=== PATIENT | male | born 1950 ===

== ENCOUNTER 2022-03-01 18:06 | Inpatient (IN) ==
[2022-03-01] MEDS ORDERED: D5% in Water 1,000 ML IVC PRN (18:59)
[2022-03-01] MEDS ORDERED: *HR* Dextrose 50 % in Water (Syg) 50 ML SYRINGE IVP PRN (18:59)
[2022-03-01] MEDS ORDERED: Dextrose Gel 15 GM/37.5 ML TUBE PO PRN ×2 (18:59)
[2022-03-01] MEDS ORDERED: Ondansetron ODT 4 MG TAB.RAPDIS SL PRN (19:03)
[2022-03-01] MEDS ORDERED: Sennosides/Docusate Sodium TABLET PO PRN (19:04)
[2022-03-01] MEDS: Insulin LISPRO 300 UNITS/3 ML VIAL SUBQ SCH (22:03)
[2022-03-01] MEDS: Insulin DETEMIR 100 UNIT/ML per UNIT SUBQ SCH (22:14)
[2022-03-01] MEDS ORDERED: chlorproMAZINE 25 MG TABLET PO ONE (22:15)
[2022-03-02] MEDS ORDERED: *HR* Heparin 5,000 UNIT/ML VIAL SQ SCH (06:00)
[2022-03-02 07:06] LABS: Basophils # 0.1 K/mcL (0.0-0.2); Eosinophils # 0.6 K/mcL (0.0-0.6); Eosinophils % 8.1 %; Hematocrit 37.4 % (37.5-50.1); Hemoglobin 12.2 g/dL (12.9-16.9); Immature Granulocytes % 0.3 % (0-4); Lymphocytes # 2.1 K/mcL (0.6-4.6); Lymphocytes % 26.2 %; Mean Corpuscular HGB Conc 32.6 g/dL (31.6-35.5); Mean Corpuscular Hemoglobin 27.4 pg (28.0-33.3); Mean Corpuscular Volume 83.9 fL (83.0-100.0); Mean Platelet Volume 9.7 fL (9.4-12.4); Monocytes # 0.7 K/mcL (0.0-1.3); Monocytes % 9.1 %; Neutrophils # 4.4 K/mcL (1.6-8.9); Platelet Count 337 K/mcL (140-400); Red Blood Count 4.46 M/mcL (4.19-5.50); Red Cell Distribution Width 13.2 % (11.5-14.5); Segmented Neutrophils % 55.3 %; White Blood Count 7.9 K/mcL (4.3-11.1)
[2022-03-02 07:27] LABS: BUN/Creatinine Ratio 36 (6-26); Blood Urea Nitrogen 37 mg/dL (8-23); Calcium 8.5 mg/dL (8.6-10.3); Carbon Dioxide 29 mEq/L (23-29); Chloride 99 mEq/L (98-107); Glucose 128 mg/dL (70-105); Osmolality,Calculated 286 (280-300); Potassium 4.4 mEq/L (3.5-5.1); Sodium 133 mEq/L (136-145); eGFR For African Americans > 60 (> 60); eGFR For Non-African Americans > 60 (> 60)
[2022-03-02] MEDS: Insulin LISPRO 300 UNITS/3 ML VIAL SUBQ SCH ×4 (07:38→21:36)
[2022-03-02] MEDS: Multivit/Ca/Min/Fe/FA 1 TAB TABLET PO SCH (09:52)
[2022-03-02] MEDS: amLODIPine 5 MG TABLET PO SCH (09:52)
[2022-03-02] MEDS: hydroCHLOROthiazide 25 MG TABLET PO SCH (09:53)
[2022-03-02] MEDS: Insulin DETEMIR 100 UNIT/ML per UNIT SUBQ SCH ×2 (09:53→21:33)
[2022-03-02] MEDS: Pantoprazole 40 MG VIAL IVP SCH ×2 (16:56→17:20)
[2022-03-03] MEDS: *HR* Enoxaparin 40 MG/0.4 ML SYRINGE SQ SCH (06:12)
[2022-03-03] MEDS: Pantoprazole 40 MG VIAL IVP SCH ×2 (06:13→17:06)
[2022-03-03] MEDS: Multivit/Ca/Min/Fe/FA 1 TAB TABLET PO SCH (09:57)
[2022-03-03] MEDS: amLODIPine 5 MG TABLET PO SCH (09:57)
[2022-03-03] MEDS: Insulin LISPRO 300 UNITS/3 ML VIAL SUBQ SCH ×4 (09:57→21:25)
[2022-03-03] MEDS: hydroCHLOROthiazide 25 MG TABLET PO SCH (09:58)
[2022-03-03] MEDS: Insulin DETEMIR 100 UNIT/ML X5UNITS SUBQ SCH ×2 (09:58→21:25)
[2022-03-03] MEDS: Insulin DETEMIR 100 UNIT/ML per UNIT SUBQ SCH (14:47)
[2022-03-04] MEDS: *HR* Enoxaparin 40 MG/0.4 ML SYRINGE SQ SCH (06:07)
[2022-03-04] MEDS: Pantoprazole 40 MG VIAL IVP SCH ×2 (06:08→17:30)
[2022-03-04] MEDS: Insulin LISPRO 300 UNITS/3 ML VIAL SUBQ SCH ×4 (08:17→19:42)
[2022-03-04] MEDS: Multivit/Ca/Min/Fe/FA 1 TAB TABLET PO SCH (08:28)
[2022-03-04] MEDS: hydroCHLOROthiazide 25 MG TABLET PO SCH (08:28)
[2022-03-04] MEDS: amLODIPine 5 MG TABLET PO SCH (08:28)
[2022-03-04] MEDS: Insulin DETEMIR 100 UNIT/ML X5UNITS SUBQ SCH (12:29)
[2022-03-04] MEDS ORDERED: Insulin DETEMIR 100 UNIT/ML X5UNITS SUBQ SCH (21:00)
[2022-03-04] MEDS: Acetaminophen 325 MG TABLET PO PRN (21:39)
[2022-03-05] MEDS: Pantoprazole 40 MG VIAL IVP SCH (04:52)
[2022-03-05] MEDS: *HR* Enoxaparin 40 MG/0.4 ML SYRINGE SQ SCH (04:52)
[2022-03-05] MEDS: hydroCHLOROthiazide 25 MG TABLET PO SCH (09:15)
[2022-03-05] MEDS: amLODIPine 5 MG TABLET PO SCH (09:16)
[2022-03-05] MEDS: Insulin DETEMIR 100 UNIT/ML X5UNITS SUBQ SCH (09:16)
[2022-03-05] MEDS: Multivit/Ca/Min/Fe/FA 1 TAB TABLET PO SCH (09:16)
[2022-03-05] MEDS: Insulin LISPRO 300 UNITS/3 ML VIAL SUBQ SCH ×4 (09:16→20:08)
[2022-03-05] MEDS: Acetaminophen 325 MG TABLET PO PRN (20:08)
[2022-03-06] MEDS: *HR* Enoxaparin 40 MG/0.4 ML SYRINGE SQ SCH (05:32)
[2022-03-06] MEDS: Insulin LISPRO 300 UNITS/3 ML VIAL SUBQ SCH ×4 (07:44→20:47)
[2022-03-06] MEDS: amLODIPine 5 MG TABLET PO SCH (07:45)
[2022-03-06] MEDS: hydroCHLOROthiazide 25 MG TABLET PO SCH (07:45)
[2022-03-06] MEDS: Multivit/Ca/Min/Fe/FA 1 TAB TABLET PO SCH (07:46)
[2022-03-06] MEDS: Acetaminophen 325 MG TABLET PO PRN ×2 (11:33→19:12)
[2022-03-06] MEDS: Insulin DETEMIR 100 UNIT/ML X5UNITS SUBQ SCH (11:33)
[2022-03-07] MEDS: *HR* Enoxaparin 40 MG/0.4 ML SYRINGE SQ SCH (05:42)
[2022-03-07] MEDS: Acetaminophen 325 MG TABLET PO PRN ×2 (05:45→19:30)
[2022-03-07] MEDS: Insulin LISPRO 300 UNITS/3 ML VIAL SUBQ SCH ×4 (07:39→21:17)
[2022-03-07] MEDS: Multivit/Ca/Min/Fe/FA 1 TAB TABLET PO SCH (07:39)
[2022-03-07] MEDS: amLODIPine 5 MG TABLET PO SCH (07:40)
[2022-03-07] MEDS: hydroCHLOROthiazide 25 MG TABLET PO SCH (07:40)
[2022-03-07] MEDS: Insulin DETEMIR 100 UNIT/ML X5UNITS SUBQ SCH (08:41)
[2022-03-08] MEDS: *HR* Enoxaparin 40 MG/0.4 ML SYRINGE SQ SCH (05:20)
[2022-03-08] MEDS: hydroCHLOROthiazide 25 MG TABLET PO SCH (08:33)
[2022-03-08] MEDS: Multivit/Ca/Min/Fe/FA 1 TAB TABLET PO SCH (08:33)
[2022-03-08] MEDS: amLODIPine 5 MG TABLET PO SCH (08:34)
[2022-03-08] MEDS: Insulin LISPRO 300 UNITS/3 ML VIAL SUBQ SCH ×4 (08:35→20:47)
[2022-03-08] MEDS: Insulin DETEMIR 100 UNIT/ML X5UNITS SUBQ SCH (08:36)
[2022-03-08] MEDS ORDERED: Neosporin OINT 15 GM TUBE TP SCH (15:15)
[2022-03-09] MEDS: *HR* Enoxaparin 40 MG/0.4 ML SYRINGE SQ SCH (06:01)
[2022-03-09] MEDS: Insulin LISPRO 300 UNITS/3 ML VIAL SUBQ SCH ×4 (10:44→19:44)
[2022-03-09] MEDS: Insulin DETEMIR 100 UNIT/ML X5UNITS SUBQ SCH (10:45)
[2022-03-09] MEDS: amLODIPine 5 MG TABLET PO SCH (10:46)
[2022-03-09] MEDS: hydroCHLOROthiazide 25 MG TABLET PO SCH (10:46)
[2022-03-09] MEDS: Multivit/Ca/Min/Fe/FA 1 TAB TABLET PO SCH (10:46)
[2022-03-10] MEDS: *HR* Enoxaparin 40 MG/0.4 ML SYRINGE SQ SCH (04:56)
[2022-03-10] MEDS: Multivit/Ca/Min/Fe/FA 1 TAB TABLET PO SCH (08:41)
[2022-03-10] MEDS: hydroCHLOROthiazide 25 MG TABLET PO SCH (08:41)
[2022-03-10] MEDS: amLODIPine 5 MG TABLET PO SCH (08:41)
[2022-03-10] MEDS: Insulin DETEMIR 100 UNIT/ML X5UNITS SUBQ SCH (08:42)
[2022-03-10] MEDS: Insulin LISPRO 300 UNITS/3 ML VIAL SUBQ SCH ×4 (08:42→20:56)
[2022-03-11] MEDS: *HR* Enoxaparin 40 MG/0.4 ML SYRINGE SQ SCH (05:15)
[2022-03-11 07:11] VITALS: BP 181/67; PULSE 87; RESP 18; TEMP 97.9; O2SAT 96
[2022-03-11] MEDS: amLODIPine 5 MG TABLET PO SCH (07:46)
[2022-03-11] MEDS: hydroCHLOROthiazide 25 MG TABLET PO SCH (07:47)
[2022-03-11] MEDS: Insulin LISPRO 300 UNITS/3 ML VIAL SUBQ SCH ×2 (07:47→11:21)
[2022-03-11] MEDS: Multivit/Ca/Min/Fe/FA 1 TAB TABLET PO SCH (07:47)
[2022-03-11] MEDS ORDERED: Insulin DETEMIR 100 UNIT/ML X5UNITS SUBQ SCH (09:00)
[2022-03-11 09:20] LABS: eGFR For African Americans > 60 (> 60); eGFR For Non-African Americans > 60 (> 60)
== END 2022-03-11 18:20 | disposition home health service (06) | DRG 536 ==
LOC: INPPIK 21:02
PROVIDERS: ADMIT Family Medicine; ATTEND Family Medicine